=== PATIENT | male | born 1970 | race Caucasian/White ===

== ENCOUNTER 2021-05-08 18:54 | Emergency (ER) | payer MEDICARE ==
[~2021-05-08 18:54] MED LIST: ASPIRIN81 MG PO; ETODOLAC500 MG PO; IMDUR ER TAB 3030 MG PO; METHSCOPOLAMIN2.5 MG PO; NORCO 5-325 TA1 EACH PO; ROBAXIN 750 MG750 MG PO; TOPAMAX100 MG PO; TRAMADOL HCL E300 MG PO; TRAZODONE HCL50 MG PO
[2021-05-08 20:08] LABS: HEMOGLOBIN 17.3 gm/dl (14.0-17.5); RED BLOOD COUNT 6.29 M/UL (4.20-5.50)
[2021-05-08 20:25] LABS: BUN/CREATININE RATIO 13 (0-10)
[2021-05-08] MEDS ORDERED: HYDROCODON-ACE1 EAC4 PO (23:32)
[2021-05-08] MEDS ORDERED: PHENERGAN 25 MG25 M1 PO (23:32)
[2021-05-08] MEDS ORDERED: PERCOCET 5-3251 EACH PO (23:35)
[2021-05-09] MEDS ORDERED: PEPCID AC20 MG PO (00:55)
== END 2021-05-09 01:20 | disposition home or self-care (01) ==
LOC: ER1 18:54
PROVIDERS: Emergency Medicine
DX: R14.0 Abdominal distension (gaseous) (principal); Z79.899 Other long term (current) drug therapy; Z20.822 Contact with and (suspected) exposure to COVID-19
CPT/HCPCS: 71045; 80053; 81001; 83605; 83735; 84100; 85025; 87040; 87086; 96374; 96375; 99284; C9113; J2270; J2405; J2550; Q9967; U0002